=== PATIENT | male | born 1985 | race Caucasian/White ===

== ENCOUNTER → 2019-01-16 | Outpatient (CLI) | payer OTHER ==
--- NOTE | 2019-01-16 11:31 | CONS ---
CONSULTATION DATE OF SERVICE: 01/16/2019 A 33-year-old gentleman who has been evaluated in the [facility] for possible obstructive sleep apnea-hypopnea syndrome. HISTORY OF PRESENT ILLNESS/SLEEP-WAKE EVALUATION: Patient usual sleep schedule on working days from 10 to 11 p.m. until 6:15 am, on weekends from midnight until 7 - 9:00 a.m. Sometimes he has problem with falling asleep, although no TV in bedroom. He usually sleeps on the back and side position with his with very loud snoring and witnessed episodes of stopped breathing during the sleep. Patient also wakes up from sleep several times with gasping for air. No nocturia. In the morning, patient wakes up tired, has difficulties to pay attention, has problems with concentration and irritability. Burnside Sleepiness Scale is 8. No history of hypnagogic hallucinations, sleep paralysis or cataplexy. Usually patient does not take any naps. PAST MEDICAL HISTORY: Low back trauma past in 2016. PAST SURGICAL HISTORY: Low back microdiscectomy 10/02/2019 MEDICATIONS: None. SOCIAL HISTORY: Positive for smoking about 1 pack for 3 weeks. Alcohol consumption occasional. FAMILY HISTORY: Bronchitis, lung problems, emphysema, snoring, pneumonia, thyroid problems. REVIEW OF SYSTEMS: Snoring, awakenings from sleep, feeling sleepy and tired during the day. PHYSICAL EXAM: gentleman without distress. BP 122/80, HR 70, RR 16, height 5 foot 9 inches, weight 262 pounds. Body mass index 38.6, temperature 98.5, oxygen saturation at room air 97% oropharynx moderately low position of soft palate white pill left short distance between soft palate and posterior pharyngeal wall. Slight restriction of nasal breathing, especially on the left side. Wide neck is 17 inches in circumference. ABDOMEN: Obese abdomen under physical exam normal just: My template. IMPRESSION: 1. Snoring, witnessed episodes of stopped breathing during the sleep. Small oropharyngeal air space, wide neck restriction, slight restriction of nasal breathing, obstructive sleep apnea-hypopnea syndrome. 2. Mild obesity, body mass index 38.63. 3. Status post back trauma, status post low back microdiskectomy in 09/2014 17. PLAN: 1. Polysomnography for evaluation of patient's breathing during sleep. 2. CPAP/BiPAP titration if sleep study confirms obstructive sleep apnea-hypopnea syndrome. 3. Preferable position during sleep on the side. 4. No driving if patient feels any sleepiness. 5. I will see patient for follow up visit to explain results of testing and following plan. Yohan Kaplan MD, PhD, FAASM Diplomat of [place] [employer] [place] [employer] [facility] [place] Sincerely, Yohan Kaplan MD, PhD, FAASM Diplomat of [place] [employer] [place] [employer] Host[employer]ess of [facility] MMODL / IJN: [id number] /
== END | disposition home or self-care (01) ==
LOC: SLEEP 10:12
PROVIDERS: ATTEND Internal Medicine
DX: G47.33 Obstructive sleep apnea (adult) (pediatric) (principal); E66.9 Obesity, unspecified; Z68.38 Body mass index [BMI] 38.0-38.9, adult; Z87.828 Personal history of other (healed) physical injury and trauma; Z87.891 Personal history of nicotine dependence; Z98.890 Other specified postprocedural states
CPT/HCPCS: 99211

== ENCOUNTER → 2019-02-06 | Outpatient (CLI) | payer OTHER ==
--- NOTE | 2019-02-06 14:23 | SFUN ---
SLEEP CENTER FOLLOW UP NOTE DATE OF SERVICE: 02/06/2019. A 33-year-old gentleman who has been followed in the Sleep Center to discuss results of the sleep study and following plan. Discussed sleep study results with the patient in detail. No significant respiratory abnormalities have been documented. Total apnea-hypopnea index 0.8, which is absolutely normal. The lowest oxygen level 92.6%, absolutely normal, very mild periodic limb movements have been documented during the sleep study. Total amount of periodic limb movements per hour, 12.8 with only 1.5 microarousals per hour related to leg movements, high sleep efficiency 94.2%, normal sleep latency. MEDICATIONS: None. PHYSICAL EXAM: Patient in no distress. BP 135/79, HR 92, RR 16, weight 262, height 5 foot 9 inches, body mass index 30.8. OROPHARYNX: Low position of soft palate. ABDOMEN: Slightly obese. Neck Supple, no JVD. Thyroid is not palpable. LUNGS Clear to percussion and to auscultation. Good air exchange. No wheezing or rhonchi. HEART S1, S2 regular. No murmurs, gallops, or rubs. EXTREMITIES No clubbing or cyanosis. [employer] CYL[employer] LO[employer]ER Awake, alert, and oriented X3. Cranial nerves 2 to 7 intact. There is no fasciculation or atrophy. noted. No focal deficits observed. IMPRESSION: 1. No significant respiratory abnormalities have been documented during the sleep study. Normal oxygenation during the sleep. 2. Very minimal periodic limb movements have been documented, but in the range which is in normal by today's criteria. 3. Mild obesity. 4. Status post back trauma, status post low back diskectomy. PLAN: 1. Sleep hygiene with regular time in bed for at least 8 hours. 2. Watching and losing weight. 3. No driving if feeling sleepiness. 4. Preferable position during the sleep on the side. 5. Mild to loud snoring has been documented during the sleep study. Patient may consider to see Ear, Nose, and Throat physician for evaluation and treatment of simple snoring. Sincerely, Yohan Kaplan MD, PhD, FAASM Diplomat of [employer] [place] [employer] [place] [employer] [facility] [place] MMODL / IJN: [id number] /
== END ==
LOC: SLEEP 13:12
PROVIDERS: ATTEND Internal Medicine
DX: R06.83 Snoring (principal); E66.9 Obesity, unspecified; Z98.890 Other specified postprocedural states

== ENCOUNTER 2021-10-05 19:30 | Emergency (ER) | payer OTHER ==
[2021-10-05 21:50] VITALS: BP 120/77; PULSE 79; RESP 20; TEMP 98.2
[2021-10-05] MEDS ORDERED: SODIUM CHLORIDE 0.9% 1,000 ML IV ONE (22:42)
[2021-10-05 23:48] LABS: Basophils # (A) 0.1 k/uL (0-0.2); Basophils % (A) 1 %; Eosinophils # (A) 0.6 k/uL (0-0.7); Eosinophils % (A) 7 %; HCT 44.9 % (39.0-53.0); HGB 14.8 gm/dL (13.0-17.5); Lymphocytes # (A) 2.7 k/uL (1.0-4.8); Lymphocytes % (A) 33 %; MCH 31.4 pg (25.0-35.0); MCHC 32.8 g/dL (31.0-37.0); MCV 95.6 fL (80.0-100.0); Mean Platelet Volume 7.5; Monocytes # (A) 0.5 k/uL (0-1.0); Monocytes % (A) 6 %; Neutrophils # (A) 4.1 k/uL (1.3-7.7); Neutrophils % (A) 50 %; Platelet Count 221 k/uL (150-450); RDW 12.4 % (11.5-15.5); WBC 8.2 k/uL (3.8-10.6)
[2021-10-05 23:58] LABS: ALT 58 U/L (4-49); AST 36 U/L (17-59); African American GFR (CKD) >90 (>60 ml/min/1.73 sqM); Albumin 4.3 g/dL (3.5-5.0); Alkaline Phosphatase 61 U/L (38-126); Anion Gap 7 mmol/L; Blood Urea Nitrogen 18 mg/dL (9-20); Calcium 9.6 mg/dL (8.4-10.2); Carbon Dioxide 25 mmol/L (22-30); Chloride 106 mmol/L (98-107); Glucose 108 mg/dL (74-99); Magnesium 2.2 mg/dL (1.6-2.3); Non-African American GFR(CKD) >90 (>60 ml/min/1.73 sqM); Potassium 4.2 mmol/L (3.5-5.1); Sodium 138 mmol/L (137-145); Total Bilirubin 0.3 mg/dL (0.2-1.3); Total Protein 7.1 g/dL (6.3-8.2)
[2021-10-06 00:06] LABS: Appearance,Urine Clear (Clear); Bilirubin,Urine Negative (Negative); Blood,Urine Trace (Negative); Color,Urine Yellow; Glucose,Urine (UA) Negative (Negative); Ketones,Urine Negative (Negative); Leukocyte Esterase,Urine Negative (Negative); Mucus,Urine Rare /hpf; Nitrite,Urine Negative (Negative); PH, Urine 5.5 (5.0-8.0); Protein,Urine Negative (Negative); RBC,Urine 1 /hpf (0-5); Specific Gravity,Urine 1.024 (1.001-1.035); Urobilinogen,Urine <2.0 mg/dL (<2.0); WBC,Urine 1 /hpf (0-5)
--- NOTE | 2021-10-06 00:35 | ED ---
Eye Problem HPI - General Chief complaint: Eye Problems Stated complaint: Vision Blurry, headache Time Seen by Provider: 10/05/21 22:27 Source: patient Mode of arrival: ambulatory Limitations: no limitations - History of Present Illness Initial comments: 35-year-old male patient presents to the emergency department today for evaluation of blurred vision and headache. States he was driving when he started having difficulty focusing with his eyes. States he developed a mild headache at the same time. Reports the pain is 2 out of 10 on the pain scale. Denies this being the worst headache of his life. He denies any dizziness, numbness, tingling or weakness to his extremities. Denies nausea or vomiting. Denies any recent head injury. States he is eating and drinking without difficulty. His any history of medical problems. Denies alcohol or drug use. Patient denies any recent rash, fever, chills, cough, shortness of breath, chest pain, abdominal pain, constipation, back pain, hematuria, dysuria, urinary urgency, urinary frequency, headache, visual changes, or any other complaints. - Related Data Home Medications Medication Instructions Recorded Confirmed No Known Home Medications 10/05/21 10/05/21 Allergies Allergy/AdvReac Type Severity Reaction Status Date / Time No Known Allergies Allergy Verified 10/05/21 23:17 Review of Systems ROS Statement: Those systems with pertinent positive or pertinent negative responses have been documented in the HPI. ROS Other: All systems not noted in ROS Statement are negative. Past Medical History Past Medical History: No Reported History History of Any Multi-Drug Resistant Organisms: None Reported Additional Past Surgical History / Comment(s): back surgery Past Psychological History: No Psychological Hx Reported Smoking Status: Current every day smoker Past Alcohol Use History: Occasional Past Drug Use History: None Reported General Exam Limitations: no limitations General appearance: alert, in no apparent distress, other (This is a well- developed, well-nourished, nontoxic-appearing adult male patient in no acute distress.) Eye exam: Present: normal appearance, PERRL, EOMI. Absent: scleral icterus, conjunctival injection, nystagmus, periorbital swelling ENT exam: Present: normal exam, normal oropharynx, mucous membranes moist, TM's normal bilaterally Respiratory exam: Present: normal lung sounds bilaterally. Absent: respiratory distress, wheezes, rales, rhonchi, stridor Cardiovascular Exam: Present: regular rate, normal rhythm, normal heart sounds. Absent: systolic murmur, diastolic murmur, rubs, gallop, clicks GI/Abdominal exam: Present: soft, normal bowel sounds. Absent: distended, tenderness, guarding, rebound, rigid Neurological exam: Present: alert, oriented X3, CN II-XII intact Expanded Speech: Present: fluid speech Cranial nerves: EOM's Intact: Normal, Tongue Deviation: Normal Cerebellar function: Finger to Nose: Normal, Romberg: Normal Motor strength exam: RUE: 5, LUE: 5, RLE: 5, LLE: 5 Eye Response: (4) open spontaneously Motor Response: (6) obeys commands Verbal Response: (5) oriented Morley Total: 15 Psychiatric exam: Present: normal affect, normal mood Skin exam: Present: warm, dry, intact, normal color. Absent: rash Course Vital Signs 10/05/21 21:47 Temperature 98.2 F Pulse Rate 79 Respiratory 20 Rate Blood Pressure 120/77 O2 Sat by Pulse 98 Oximetry Medical Decision Making - Medical Decision Making 35-year-old male patient presents to the emergency department today for evaluation of blurred vision and mild headache. Physical examination is unremarkable. He is neurologically intact with no focal deficits. Afebrile, vital signs. Labs reviewed and were unremarkable. I did discuss findings results with him. Be discharged follow up with his primary care physician for recheck in 1-2 days. Return parameters were discussed in detail. He verbalizes understanding and agrees with this plan. Case discussed with my attending Dr. Delacruz. - Lab Data Result diagrams: 10/05/21 23:37 10/05/21 23:37 Lab Results 10/05/21 10/05/21 10/05/21 Range/Units 23:37 23:37 23:37 WBC 8.2 (3.8-10.6) k/uL RBC 4.70 (4.30-5.90) m/uL Hgb 14.8 (13.0-17.5) gm/dL Hct 44.9 (39.0-53.0) % MCV 95.6 (80.0-100.0) fL MCH 31.4 (25.0-35.0) pg MCHC 32.8 (31.0-37.0) g/dL RDW 12.4 (11.5-15.5) % Plt Count 221 (150-450) k/uL MPV 7.5 Neutrophils % 50 % Lymphocytes % 33 % Monocytes % 6 % Eosinophils % 7 % Basophils % 1 % Neutrophils # 4.1 (1.3-7.7) k/uL Lymphocytes # 2.7 (1.0-4.8) k/uL Monocytes # 0.5 (0-1.0) k/uL Eosinophils # 0.6 (0-0.7) k/uL Basophils # 0.1 (0-0.2) k/uL Sodium 138 (137-145) mmol/L Potassium 4.2 (3.5-5.1) mmol/L Chloride 106 (98-107) mmol/L Carbon Dioxide 25 (22-30) mmol/L Anion Gap 7 mmol/L BUN 18 (9-20) mg/dL Creatinine 1.01 (0.66-1.25) mg/dL Est GFR (CKD-EPI)AfAm >90 (>60 ml/min/1.73 sqM) Est GFR (CKD-EPI)NonAf >90 (>60 ml/min/1.73 sqM) Glucose 108 H (74-99) mg/dL Calcium 9.6 (8.4-10.2) mg/dL Magnesium 2.2 (1.6-2.3) mg/dL Total Bilirubin 0.3 (0.2-1.3) mg/dL AST 36 (17-59) U/L ALT 58 H (4-49) U/L Alkaline Phosphatase 61 (38-126) U/L Total Protein 7.1 (6.3-8.2) g/dL Albumin 4.3 (3.5-5.0) g/dL Urine Color Yellow Urine Appearance Clear (Clear) Urine pH 5.5 (5.0-8.0) Ur Specific [place] 1.024 (1.001-1.035) Urine Protein Negative (Negative) Urine Glucose (UA) Negative (Negative) Urine Ketones Negative (Negative) Urine Blood Trace H (Negative) Urine Nitrite Negative (Negative) Urine Bilirubin Negative (Negative) Urine Urobilinogen <2.0 (<2.0) mg/dL Ur Leukocyte Esterase Negative (Negative) Urine RBC 1 (0-5) /hpf Urine WBC 1 (0-5) /hpf Urine Mucus Rare H (None) /hpf Disposition Clinical Impression: Blurred vision, Headache Disposition: HOME SELF-CARE Condition: Good Instructions (If sedation given, give patient instructions): Acute Headache (ED), Blurred Vision (ED) Additional Instructions: Increase fluids. Rest. Follow-up with the primary care physician for recheck in 1-2 days. Return to the emergency department for any new, worsening, or concerning symptoms. Is patient prescribed a controlled substance at d/c from ED?: No Referrals: None,Stated [Primary Care Provider] - 1-2 days Time of Disposition: 00:35
== END 2021-10-06 01:20 | disposition home or self-care (01) ==
LOC: EC 19:30
DX: H53.8 Other visual disturbances (principal); R51.9 Headache, unspecified; F17.200 Nicotine dependence, unspecified, uncomplicated
CPT/HCPCS: 36415; 80053; 81001; 83735; 85025; 99284